=== PATIENT | male | born 1925 | race Caucasian/White ===

== ENCOUNTER → 2016-02-19 | Outpatient (CLI) | payer MEDICARE, BC ==
[~2016-02-19] MED LIST: ATOR10TA23; CARV3.1238 PO; DIGO125T73 PO; FURO40TA4 PO; RES15 PO; WARF7.5T PO
--- NOTE | 2016-02-19 21:29 | HKNOTE ---
DATE OF SERVICE: 02/19/2016 The patient comes in for review of his CAT scan. After he was seen at the last visit, the medicatio ns I gave him gave him almost complete relief of his pain after 3 days. He nevertheless went ahead and got the CAT scan anyway. He comes in with his . The CAT scan obtained on 02/06/[address] Xochitl waterman showing severe spinal stenosis at the L3-4 level and moderate spinal stenosis at L4-L5 level (see full report). The patient is completely free of pain. PHYSICAL EXAMINATION: Normal. The patient is given a copy of his CAT scan report and the disk and he is being referred to Dr. Lola bullock. He will not see Dr. Elmore until his pain returns. Dictated By: BLANCHE HENDRICKSON/BELINDA Conf#: [id number] DID#: [id number]
== END | disposition home or self-care (01) ==
LOC: HKI 15:24
DX: M48.06 Spinal stenosis, lumbar region (principal)
CPT/HCPCS: G0463